=== PATIENT | male | born 1995 | race Caucasian/White ===

== ENCOUNTER 2024-02-18 22:44 | Emergency (ER) | payer OTHER ==
[2024-02-18 23:13] VITALS: RESP 18; TEMP 98.8
--- NOTE | 2024-02-18 23:13 | ED ---
URI HPI - General Chief Complaint: Upper Respiratory Infection Stated Complaint: chest pain left sided numbness Time Seen by Provider: 02/18/24 23:07 Source: patient, RN notes reviewed, old records reviewed Mode of arrival: ambulatory Limitations: no limitations - History of Present Illness Initial Comments: This is a 28-year-old male to the ER for evaluation of cough congestion nasal pain runny nose ear pain facial swelling. Symptoms have been persistent for a while now but worse tonight. Patient is in no acute distress has no headache no recent fevers swelling and symptoms are just getting worse MD Complaint: cough, sore throat, rhinorrhea, nasal congestion, sinus pain -: days(s) Severity: mild, moderate Severity scale (1-10): 6 Quality: sharp, aching Consistency: constant Improves With: nothing Worsens With: nothing Associated Symptoms: myalgias, nasal congestion, sore throat Treatments Prior to Arrival: none - Related Data Previous Rx's Medication Instructions Recorded Amoxic-Pot Clav 875-125Mg 1 tab PO Q12HR #20 tablet 02/19/24 [Augmentin 875-125] Loratadine-Pseudoeph 10-240 mg 1 tab PO DAILY #14 tab 02/19/24 [Claritin-D 24 Hour] Allergies Allergy/AdvReac Type Severity Reaction Status Date / Time No Known Allergies Allergy Verified 02/18/24 22:56 Review of Systems ROS Statement: Those systems with pertinent positive or pertinent negative responses have been documented in the HPI. ROS Other: All systems not noted in ROS Statement are negative. Past Medical History Past Medical History: No Reported History History of Any Multi-Drug Resistant Organisms: None Reported Past Surgical History: No Surgical Hx Reported Past Psychological History: No Psychological Hx Reported Smoking Status: Vaper Past Alcohol Use History: None Reported Past Drug Use History: Marijuana General Exam Limitations: no limitations General appearance: alert, in no apparent distress Head exam: Present: atraumatic, normocephalic, normal inspection Eye exam: Present: normal appearance, PERRL, EOMI. Absent: scleral icterus, conjunctival injection, periorbital swelling ENT exam: Present: normal exam, mucous membranes moist Neck exam: Present: normal inspection. Absent: tenderness, meningismus, lymphadenopathy Respiratory exam: Present: normal lung sounds bilaterally. Absent: respiratory distress, wheezes, rales, rhonchi, stridor Cardiovascular Exam: Present: regular rate, normal rhythm, normal heart sounds. Absent: systolic murmur, diastolic murmur, rubs, gallop, clicks GI/Abdominal exam: Present: soft, normal bowel sounds. Absent: distended, tenderness, guarding, rebound, rigid Extremities exam: Present: normal inspection, full ROM, normal capillary refill. Absent: tenderness, pedal edema, joint swelling, calf tenderness Back exam: Present: normal inspection Neurological exam: Present: alert, oriented X3, CN II-XII intact Psychiatric exam: Present: normal affect, normal mood Skin exam: Present: warm, dry, intact, normal color. Absent: rash Course Vital Signs 02/18/24 02/19/24 22:50 01:13 Temperature 98.8 F Pulse Rate 80 78 Respiratory 18 18 Rate Blood Pressure 124/84 130/80 O2 Sat by Pulse 98 100 Oximetry - Reevaluation(s) Reevaluation #1: 02/19/24 03:04 Medical records reviewed Reevaluation #2: 02/19/24 03:04 Patient symptoms improved Reevaluation #3: 02/19/24 03:05 Patient informed of results and questions answered Reevaluation #4: Was pt. sent in by a medical professional or institution (, PA, CASINO ASSISTANT MANAGER, urgent care, hospital, or detention...) When possible be specific @ -no Did you speak to anyone other than the patient for history (EMS, parent, family, police, friend...)? What history was obtained from this source @ -no Did you review nursing and triage notes (agree or disagree)? Why? @ -agree Are old charts reviewed (outside hosp., previous admission, EMS record, old EKG, old radiological studies, urgent care reports/EKG's, detention records)? Report findings @ -yes Differential Diagnosis (chest pain, altered mental status, abdominal pain women, abdominal pain men, vaginal bleeding, weakness, fever, dyspnea, syncope, headache, dizziness, GI bleed, back pain, seizure, CVA, palpatations, mental health, musculoskeletal)? @ -prior EKG interpreted by me (3pts min.). @ -no X-rays interpreted by me (1pt min.). @ -no CT interpreted by me (1pt min.). @ -no U/S interpreted by me (1pt. min.). @ -no What testing was considered but not performed or refused? (CT, X-rays, U/S, labs)? Why? @ -none What meds were considered but not given or refused? Why? @ -none Did you discuss the management of the patient with other professionals (professionals i.e. , PA, CASINO ASSISTANT MANAGER, lab, RT, psych nurse, social media marketing specialist, knobber, teacher, assistant chief nursing officer, supervisor case loading)? Give summary @ -no Was smoking cessation discussed for >3mins.? @ -no Was critical care preformed (if so, how long)? @ -no Were there social determinants of health that impacted care today? How? (Homelessness, low income, unemployed, alcoholism, drug addiction, transportati on, low edu. Level, literacy, decrease access to med. care, longterm, rehab)? @ -none Was there de-escalation of care discussed even if they declined (Discuss DNR or withdrawal of care, Hospice)? DNR status @ -no What co-morbidities impacted this encounter? (DM, HTN, Smoking, COPD, CAD, Cancer, CVA, ARF, Chemo, Hep., AIDS, mental health diagnosis, sleep apnea, morbid obesity)? @ -none Was patient admitted / discharged? Hospital course, mention meds given and route, prescriptions, significant lab abnormalities, going to OR and other pertinent info. @ - 28 Male with upper respiratory infection pharyngitis otitis, patient will be placed on antibiotics and decongestion and can be discharged home Discharge Undiagnosed new problem with uncertain prognosis? @ -no Drug Therapy requiring intensive monitoring for toxicity (Heparin, Nitro, Insulin, Cardizem)? @ -no Were any procedures done? @ -no Diagnosis/symptom? @ -Upper respiratory infection pharyngitis Acute, or Chronic, or Acute on Chronic? @ -Acute Uncomplicated (without systemic symptoms) or Complicated (systemic symptoms)? @ -Complicated Side effects of treatment? @ -no Exacerbation, Progression, or Severe Exacerbation? @ -exacerbation Poses a threat to life or bodily function? How? (Chest pain, [place], [place], pneumonia, PE, COPD, DKA, ARF, appy, cholecystitis, CVA, Diverticulitis, Homicidal, Suicidal, threat to staff... and all critical care pts) @ -no Medical Decision Making - Medical Decision Making 28 Male with upper respiratory infection pharyngitis otitis, patient will be placed on antibiotics and decongestion and can be discharged home Disposition Clinical Impression: Acute upper respiratory infection, Upper respiratory tract infection Disposition: HOME SELF-CARE Condition: Good Instructions (If sedation given, give patient instructions): Upper Respiratory Infection (ED) Prescriptions: Amoxic-Pot Clav 875-125Mg [Augmentin 875-125] 1 tab PO Q12HR #20 tablet Loratadine-Pseudoeph 10-240 mg [Claritin-D 24 Hour] 1 tab PO DAILY #14 tab Is patient prescribed a controlled substance at d/c from ED?: No Referrals: None,Stated [Primary Care Provider] - 1-2 days Time of Disposition: 00:00
[2024-02-19] MEDS: AMOXIC-POT CLAV 875-125MG 1 EACH TAB PO STA (00:31)
[2024-02-19] MEDS: dexAMETHasone 2 MG TAB PO STA (00:31)
[2024-02-19] MEDS: LORATADINE-PSEUDOEPH 5-120 MG 1 EACH TAB.ER.12H PO STA (00:32)
[2024-02-19] MEDS: ETODOLAC 400 MG TAB PO STA (00:32)
[2024-02-19 01:36] VITALS: BP 130/80; PULSE 78
== END 2024-02-19 01:14 | disposition home or self-care (01) ==
LOC: EC 22:44
DX: J06.9 Acute upper respiratory infection, unspecified (principal); J02.9 Acute pharyngitis, unspecified; F17.290 Nicotine dependence, other tobacco product, uncomplicated; F12.90 Cannabis use, unspecified, uncomplicated
CPT/HCPCS: 99284; J8540

== ENCOUNTER 2025-01-05 14:52 | Emergency (ER) | payer OTHER ==
[2025-01-05 14:58] VITALS: RESP 16
--- NOTE | 2025-01-05 14:59 | ED ---
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 States that he was walking inside on hardwood stairs when he missed a step, falling and hitting the right side of his head. He denies loss of consciousness prior to the fall however states that he saw stars and felt like he was going to pass out after his admission during nauseous. Currently states that he is experiencing occasional changes in his vision and a headache that is rated as a 7/10. Has not taken any medications since the time of the fall. Denies other injuries from the fall. - Related Data Previous Rx's Medication Instructions Recorded Amoxic-Pot Clav 875-125Mg 1 tab PO Q12HR #20 tablet 02/19/24 [Augmentin 875-125] Loratadine-Pseudoeph 10-240 mg 1 tab PO DAILY #14 tab 02/19/24 [Claritin-D 24 Hour] Allergies Allergy/AdvReac Type Severity Reaction Status Date / Time No Known Allergies Allergy Verified 02/18/24 22:56 Review of Systems ROS Statement: Those systems with pertinent positive or pertinent negative responses have been documented in the HPI. ROS Other: All systems not noted in ROS Statement are negative. Past Medical History Past Medical History: No Reported History History of Any Multi-Drug Resistant Organisms: None Reported Past Surgical History: No Surgical Hx Reported Past Psychological History: No Psychological Hx Reported Smoking Status: Vaper Past Alcohol Use History: None Reported Past Drug Use History: Marijuana General Exam Limitations: no limitations General appearance: alert, in no apparent distress Head exam: Present: atraumatic, normocephalic, normal inspection Eye exam: Present: normal appearance, PERRL, EOMI. Absent: scleral icterus, conjunctival injection, periorbital swelling Neck exam: Present: normal inspection. Absent: tenderness, meningismus, lymphadenopathy Respiratory exam: Present: normal lung sounds bilaterally. Absent: respiratory distress, wheezes, rales, rhonchi, stridor Cardiovascular Exam: Present: regular rate, normal rhythm, normal heart sounds. Absent: systolic murmur, diastolic murmur, rubs, gallop, clicks GI/Abdominal exam: Present: soft, normal bowel sounds. Absent: distended, tenderness, guarding, rebound, rigid Neurological exam: Present: alert, oriented X3, CN II-XII intact Course Vital Signs 01/05/25 01/05/25 14:54 16:20 Temperature 97.9 F 97.8 F Pulse Rate 65 64 Respiratory 16 16 Rate Blood Pressure 118/74 114/81 O2 Sat by Pulse 98 98 Oximetry Medical Decision Making - Medical Decision Making Was pt. sent in by a medical professional or institution (, NING, GIN CLERK, urgent care, hospital, or custodial...) When possible be specific @ -No Did you speak to anyone other than the patient for history (EMS, parent, family, police, friend...)? What history was obtained from this source @ -No Did you review nursing and triage notes (agree or disagree)? Why? @ -I reviewed and agree with nursing and triage notes Were old charts reviewed (outside hosp., previous admission, EMS record, old EKG, old radiological studies, urgent care reports/EKG's, custodial records)? Report findings @ -No old charts were reviewed Differential Diagnosis (chest pain, altered mental status, abdominal pain women, abdominal pain men, vaginal bleeding, weakness, fever, dyspnea, syncope, headache, dizziness, GI bleed, back pain, seizure, CVA, palpatations, mental health, musculoskeletal)? @ -Concussion, scalp contusion, intracranial hemorrhage, cervical spine strain, cervical spine fracture, this list is not all inclusive EKG interpreted by me (3pts min.). @ -none X-rays interpreted by me (1pt min.). @ -None done CT interpreted by me (1pt min.). @ -CT of the brain C-spine without contrast no acute or cranial cervical spine abnormality U/S interpreted by me (1pt. min.). @ -None done What testing was considered but not performed or refused? (CT, X-rays, U/S, labs)? Why? @ -None What meds were considered but not given or refused? Why? @ -None Did you discuss the management of the patient with other professionals (professionals i.e. , NING, GIN CLERK, lab, RT, psych nurse, social media specialist, cabinet finisher, teacher, sales and service officer, caseworker protective services)? Give summary @ -No Was smoking cessation discussed for >3mins.? @ -No Was critical care preformed (if so, how long)? @ -No Were there social determinants of health that impacted care today? How? (Homelessness, low income, unemployed, alcoholism, drug addiction, transportation, low edu. Level, literacy, decrease access to med. care, halfway, rehab)? @ -No Was there de-escalation of care discussed even if they declined (Discuss DNR or withdrawal of care, Hospice)? DNR status @ -No What co-morbidities impacted this encounter? (DM, HTN, Smoking, COPD, CAD, Cancer, CVA, ARF, Chemo, Hep., AIDS, mental health diagnosis, sleep apnea, morbid obesity)? @ -None Was patient admitted / discharged? Hospital course, mention meds given and route, prescriptions, significant lab abnormalities, going to OR and other pertinent info. @ -Discharge. 29-year-old male presents emergency department after head injury. Overall is well-appearing. Neurological examination is here with no acute deficits. He is provided with dose of Tylenol for pain relief. CT of the brain and C-spine no acute process. Concussion care discussed at bedside. Case discussed with dr. Mcgee Undiagnosed new problem with uncertain prognosis? @ -No Drug Therapy requiring intensive monitoring for toxicity (Heparin, Nitro, Insulin, Cardizem)? @ -No Were any procedures done? @ -No Diagnosis/symptom? @ -concussion Acute, or Chronic, or Acute on Chronic? @ -acute Uncomplicated (without systemic symptoms) or Complicated (systemic symptoms)? @ -uncomplicated Side effects of treatment? @ -No Exacerbation, Progression, or Severe Exacerbation? @ -No Poses a threat to life or bodily function? How? (Chest pain, [place], [place], pneumonia, PE, COPD, DKA, ARF, appy, cholecystitis, CVA, Diverticulitis, Homicidal, Suicidal, threat to staff... and all critical care pts) @ -No Disposition Clinical Impression: Concussion Disposition: HOME SELF-CARE Condition: Good Instructions (If sedation given, give patient instructions): Concussion (ED) Additional Instructions: Please return to the Emergency Department if symptoms worsen or any other concerns. Is patient prescribed a controlled substance at d/c from ED?: No Referrals: None,Stated [Primary Care Provider] - 1-2 days Time of Disposition: 16:30
[2025-01-05] MEDS: ACETAMINOPHEN TAB 500 MG TAB PO STA (15:19)
--- NOTE | 2025-01-05 16:21 | CT ---
EXAMINATION TYPE: CT brain cspine wo con DATE OF EXAM: 01/05/2025 History: Slip and fall and hit head with headache comparison: None technique: Multiple axial images o btained through the skull base to vertex without use of IV contrast. Multiple axial images obtained f rom skull base through the upper thoracic spine without contrast. FINDINGS: Head CT: Ventricles, basal cisterns and sulci over convexities within normal limits and there is no mass, mass effect or shift of midline structures. No abnormal density is seen throughout the brain parenchyma and there is no acute intra or extra-axia l hemorrhage. Posterior fossa including the brainstem, fourth ventricle and cerebellar pontine angles are grossly n ormal. The intraorbital contents appear normal and symmetric. There are multiple mucous retention cysts or p olyps in the maxillary sinus indicating chronic maxillary sinusitis. The mastoid air cells are well a erated. CT cervical spine: Craniovertebral junction relationships and prevertebral soft tissues are normal. The cervical vertebral segments are normal in height and alignment and there is no fracture subluxati on. The disc spaces are well-maintained in height and there is no significant degenerative disc disease. The bony cervical canal is widely patent and there is no bony encroachment of the neural foramina. The paraspinal soft tissues unremarkable. IMPRESSION: 1. Head CT: No acute bleed or mass effect. 2. CT cervical spine: No acute trauma. [facility], , 01/05/2025 4:19 PM
[2025-01-05 16:45] VITALS: BP 115/72; PULSE 66; TEMP 97.9
== END 2025-01-05 16:45 | disposition home or self-care (01) ==
LOC: EC 14:52
DX: S06.0XAA Concussion with loss of consciousness status unknown, initial encounter (principal); F17.290 Nicotine dependence, other tobacco product, uncomplicated; W10.9XXA Fall (on) (from) unspecified stairs and steps, initial encounter; Y93.01 Activity, walking, marching and hiking
CPT/HCPCS: 70450; 72125; 99284

== ENCOUNTER 2025-01-09 18:15 | Emergency (ER) | payer OTHER ==
[2025-01-09 18:21] VITALS: TEMP 98.4
--- NOTE | 2025-01-09 18:42 | ED ---
General Adult HPI - General Chief complaint: GI Bleed Stated complaint: Rectal bleeding Time Seen by Provider: 01/09/25 18:30 Source: patient, RN notes reviewed, old records reviewed Mode of arrival: ambulatory Limitations: no limitations - History of Present Illness Initial comments: 29 yo male presenting with an episode of bright red rectal bleeding. Patient had a hard stool and noted some bright red blood in the toilet. He states that this did not continue to bleed after the bowel movement. He has never had a colonoscopy. No history of colitis. He denies any abdominal pain. Fever. No history of hemorrhoids. - Related Data Previous Rx's Medication Instructions Recorded Amoxic-Pot Clav 875-125Mg 1 tab PO Q12HR #20 tablet 02/19/24 [Augmentin 875-125] Loratadine-Pseudoeph 10-240 mg 1 tab PO DAILY #14 tab 02/19/24 [Claritin-D 24 Hour] Docusate [Colace] 100 mg PO BID #60 capsule 01/09/25 Allergies Allergy/AdvReac Type Severity Reaction Status Date / Time No Known Allergies Allergy Verified 01/09/25 18:20 Review of Systems ROS Statement: Those systems with pertinent positive or pertinent negative responses have been documented in the HPI. ROS Other: All systems not noted in ROS Statement are negative. Past Medical History Past Medical History: No Reported History History of Any Multi-Drug Resistant Organisms: None Reported Past Surgical History: No Surgical Hx Reported Past Psychological History: No Psychological Hx Reported Smoking Status: Vaper Past Alcohol Use History: Occasional Past Drug Use History: None Reported General Exam Limitations: no limitations General appearance: alert, in no apparent distress Head exam: Present: atraumatic, normocephalic Eye exam: Present: normal appearance, PERRL ENT exam: Present: normal exam Neck exam: Present: normal inspection. Absent: tenderness, meningismus Respiratory exam: Present: normal lung sounds bilaterally. Absent: respiratory distress, wheezes Cardiovascular Exam: Present: regular rate, normal rhythm GI/Abdominal exam: Present: soft. Absent: distended, tenderness, guarding, rebound Rectal exam: Present: normal inspection, normal rectal tone. Absent: bloody stool, hemorrhoids, mass, tenderness Extremities exam: Present: normal inspection Back exam: Present: normal inspection. Absent: full ROM, tenderness Neurological exam: Present: alert, oriented X3, CN II-XII intact. Absent: motor sensory deficit Psychiatric exam: Present: normal affect, normal mood Skin exam: Present: warm, dry, intact. Absent: cyanosis, diaphoretic Course Vital Signs 01/09/25 18:17 Temperature 98.4 F Pulse Rate 87 Respiratory 16 Rate Blood Pressure 148/89 O2 Sat by Pulse 97 Oximetry Medical Decision Making - Medical Decision Making Was pt. sent in by a medical professional or institution (NING Carrera, MANAGER METAL, urgent care, hospital, or fci...) When possible be specific @ -No Did you speak to anyone other than the patient for history (EMS, parent, family, police, friend...)? What history was obtained from this source @ -No Did you review nursing and triage notes (agree or disagree)? Why? @ -I reviewed and agree with nursing and triage notes Were old charts reviewed (outside hosp., previous admission, EMS record, old EKG, old radiological studies, urgent care reports/EKG's, fci records)? Report findings @ -No old charts were reviewed Differential GI Bleed: Esophageal varices, aortoenteric fistula, Grisel-Brian, gastritis, peptic ulcer disease, diverticulosis, inflammatory bowel disease, hemorrhoids, fissure, colitis, malignancy, Meckel's diverticulum, this is not meant to be an all- inclusive list. EKG interpreted by me (3pts min.). @ -As above X-rays interpreted by me (1pt min.). @ -None done CT interpreted by me (1pt min.). @ -None done U/S interpreted by me (1pt. min.). @ -None done What testing was considered but not performed or refused? (CT, X-rays, U/S, labs)? Why? @ -None What meds were considered but not given or refused? Why? @ -None Did you discuss the management of the patient with other professionals (professionals i.e. NING Carrera, MANAGER METAL, lab, RT, psych nurse, oncology social work, marketing systems analyst, teacher, strategic debriefing officer, embedded case manager)? Give summary @ -No Was smoking cessation discussed for >3mins.? @ -No Was critical care preformed (if so, how long)? @ -No Were there social determinants of health that impacted care today? How? (Homelessness, low income, unemployed, alcoholism, drug addiction, transportation, low edu. Level, literacy, decrease access to med. care, assisted, rehab)? @ -No Was there de-escalation of care discussed even if they declined (Discuss DNR or withdrawal of care, Hospice)? DNR status @ -No What co-morbidities impacted this encounter? (DM, HTN, Smoking, COPD, CAD, Cancer, CVA, ARF, Chemo, Hep., AIDS, mental health diagnosis, sleep apnea, morbid obesity)? @ -None Was patient admitted / discharged? Hospital course, mention meds given and route, prescriptions, significant lab abnormalities, going to OR and other pertinent info. @29-year-old male with an episode of rectal bleeding. No further bleeding after this bowel movement. Normal rectal exam, no hemorrhoids, no gross blood no melena. Patient is hemodynamically stable. He will take stool softeners and increase the fiber in his diet. He will monitor for further bleeding. If there is further bleeding beyond the single episode he will return to the emergency department. He is also instructed to get a colonoscopy in the near future with his primary care provider. Undiagnosed new problem with uncertain prognosis? @ -No Drug Therapy requiring intensive monitoring for toxicity (Heparin, Nitro, Insulin, Cardizem)? @ -No Were any procedures done? @ -No Diagnosis/symptom? @ -Rectal bleeding Acute, or Chronic, or Acute on Chronic? @ -Acute Uncomplicated (without systemic symptoms) or Complicated (systemic symptoms)? @ -Default Side effects of treatment? @ -No Exacerbation, Progression, or Severe Exacerbation? @ -No Poses a threat to life or bodily function? How? (Chest pain, [place], [place], pneumonia, PE, COPD, DKA, ARF, appy, cholecystitis, CVA, Diverticulitis, Homicidal, Suicidal, threat to staff... and all critical care pts) @ -[Low risk at this time Disposition Clinical Impression: Rectal bleeding Disposition: HOME SELF-CARE Condition: Fair Instructions (If sedation given, give patient instructions): Gastrointestinal Bleeding (ED) Prescriptions: Docusate [Colace] 100 mg PO BID #60 capsule Is patient prescribed a controlled substance at d/c from ED?: No Referrals: None,Stated [Primary Care Provider] - 1-2 days Time of Disposition: 18:42
[2025-01-09 18:54] VITALS: BP 138/70; PULSE 76; RESP 18
== END 2025-01-09 18:54 | disposition home or self-care (01) ==
LOC: EC 18:15
DX: K62.5 Hemorrhage of anus and rectum (principal); F17.290 Nicotine dependence, other tobacco product, uncomplicated
CPT/HCPCS: 99284

== ENCOUNTER 2025-01-19 02:26 | Emergency (ER) | payer SELFPAY ==
[2025-01-19 02:30] VITALS: RESP 16
[2025-01-19] MEDS: IBUPROFEN 600 MG TAB PO STA (02:59)
[2025-01-19] MEDS: LIDOCAINE VISCOUS 2% 15 ML CUP MUCOUS MEM ONE (03:00)
[2025-01-19 03:41] LABS: Influenza A Not Detected (Not Detectd); Influenza B Not Detected (Not Detectd); RSV Not Detected (Not Detectd)
[2025-01-19 03:51] VITALS: BP 130/76; PULSE 87; TEMP 98
--- NOTE | 2025-01-19 03:51 | ED ---
ENT HPI - General Chief complaint: ENT Stated complaint: sore throat Time Seen by Provider: 01/19/25 02:39 Source: patient Mode of arrival: ambulatory Limitations: no limitations - History of Present Illness Initial comments: 29-year-old male presenting with chief complaint of sore throat. Symptoms started yesterday. He also admits to cough, vomiting, congestion. Denies difficulty breathing or swallowing. Admits to pain with swallowing. Thinks that he is vomiting because he is coughing so hard. No blood in his vomit. No sinus pain or ear pain. No fever. - Related Data Previous Rx's Medication Instructions Recorded Amoxic-Pot Clav 875-125Mg 1 tab PO Q12HR #20 tablet 02/19/24 [Augmentin 875-125] Loratadine-Pseudoeph 10-240 mg 1 tab PO DAILY #14 tab 02/19/24 [Claritin-D 24 Hour] Docusate [Colace] 100 mg PO BID #60 capsule 01/09/25 Allergies Allergy/AdvReac Type Severity Reaction Status Date / Time No Known Allergies Allergy Verified 01/19/25 02:27 Review of Systems ROS Statement: Those systems with pertinent positive or pertinent negative responses have been documented in the HPI. ROS Other: All systems not noted in ROS Statement are negative. Past Medical History Past Medical History: No Reported History History of Any Multi-Drug Resistant Organisms: None Reported Past Surgical History: No Surgical Hx Reported Past Psychological History: No Psychological Hx Reported Smoking Status: Vaper Past Alcohol Use History: Occasional Past Drug Use History: None Reported General Exam Limitations: no limitations General appearance: alert, in no apparent distress Head exam: Present: atraumatic, normocephalic, normal inspection Eye exam: Present: normal appearance, EOMI ENT exam: Present: normal exam, normal oropharynx, mucous membranes moist Neck exam: Present: normal inspection, lymphadenopathy. Absent: meningismus Respiratory exam: Present: normal lung sounds bilaterally. Absent: respiratory distress, wheezes, rales, rhonchi, stridor Cardiovascular Exam: Present: regular rate, normal rhythm, normal heart sounds. Absent: systolic murmur, diastolic murmur, rubs, gallop, clicks Neurological exam: Present: alert, oriented X3 Psychiatric exam: Present: normal affect, normal mood Skin exam: Present: warm, dry, normal color Course Vital Signs 01/19/25 02:28 Temperature 98.1 F Pulse Rate 90 Respiratory 16 Rate Blood Pressure 131/82 O2 Sat by Pulse 95 Oximetry Medical Decision Making - Medical Decision Making Was pt. sent in by a medical professional or institution ([facility], [facility], urgent care, hospital, or jail...) When possible be specific @ -No Did you speak to anyone other than the patient for history (EMS, parent, family, police, friend...)? What history was obtained from this source @ -No Did you review nursing and triage notes (agree or disagree)? Why? @ -I reviewed and agree with nursing and triage notes Were old charts reviewed (outside hosp., previous admission, EMS record, old EKG, old radiological studies, urgent care reports/EKG's, jail records)? Report findings @ -No old charts were reviewed Differential Diagnosis (chest pain, altered mental status, abdominal pain women, abdominal pain men, vaginal bleeding, weakness, fever, dyspnea, syncope, headache, dizziness, GI bleed, back pain, seizure, CVA, palpatations, mental health, musculoskeletal)? @ -Differential includes influenza, RSV, COVID, strep pharyngitis, peritonsillar abscess, not an all-inclusive list EKG interpreted by me (3pts min.). @ -As above X-rays interpreted by me (1pt min.). @ -None done CT interpreted by me (1pt min.). @ -None done U/S interpreted by me (1pt. min.). @ -None done What testing was considered but not performed or refused? (CT, X-rays, U/S, labs)? Why? @ -None What meds were considered but not given or refused? Why? @ -None Did you discuss the management of the patient with other professionals (professionals i.e. [facility], [employer], lab, RT, psych nurse, manager social media, hosiery pairer, teacher, tax compliance officer, nurse case management)? Give summary @ -No Was smoking cessation discussed for >3mins.? @ -No Was critical care preformed (if so, how long)? @ -No Were there social determinants of health that impacted care today? How? (Homelessness, low income, unemployed, alcoholism, drug addiction, transportation, low edu. Level, literacy, decrease access to med. care, prison, rehab)? @ -No Was there de-escalation of care discussed even if they declined (Discuss DNR or withdrawal of care, Hospice)? DNR status @ -No What co-morbidities impacted this encounter? (DM, HTN, Smoking, COPD, CAD, Cancer, CVA, ARF, Chemo, Hep., AIDS, mental health diagnosis, sleep apnea, morbid obesity)? @ -None Was patient admitted / discharged? Hospital course, mention meds given and route, prescriptions, significant lab abnormalities, going to OR and other pertinent info. @ -29-year-old male presenting with chief complaint of sore throat. History and physical examination are conducted. He is negative for influenza, RSV, COVI D, group A strep. He is educated on today's findings and supportive management at home. Feeling better after viscous lidocaine and ibuprofen here in the ER. Follow-up with PCP. Report back to ER with any new or worsening symptoms. Discussed return parameters and answered all questions. Patient conveyed verbal understanding and agreed to the plan. I discussed this case in detail with my attending Dr. Mcgee Undiagnosed new problem with uncertain prognosis? @ -No Drug Therapy requiring intensive monitoring for toxicity (Heparin, Nitro, Insulin, Cardizem)? @ -No Were any procedures done? @ -No Diagnosis/symptom? @ -Pharyngitis Acute, or Chronic, or Acute on Chronic? @ -Acute Uncomplicated (without systemic symptoms) or Complicated (systemic symptoms)? @ -Uncomplicated Side effects of treatment? @ -No Exacerbation, Progression, or Severe Exacerbation? @ -No Poses a threat to life or bodily function? How? (Chest pain, [place], [place], pneumonia, PE, COPD, DKA, ARF, appy, cholecystitis, CVA, Diverticulitis, Homicidal, Suicidal, threat to staff... and all critical care pts) @ -Unlikely - Lab Data Lab Results 01/19/25 01/19/25 Range/Units 02:37 02:37 Influenza Type A (PCR) Not Detected (Not Detectd) Influenza Type B (PCR) Not Detected (Not Detectd) RSV (PCR) Not Detected (Not Detectd) SARS-CoV-2 (PCR) Not Detected (Not Detectd) Group A Strep (PCR) NOT DETECTED (Not Detectd) Disposition Clinical Impression: Acute viral pharyngitis Disposition: HOME SELF-CARE Condition: Good Instructions (If sedation given, give patient instructions): Pharyngitis (ED) Additional Instructions: Follow-up with PCP. Report back to ER with any new or worsening symptoms. Take Motrin and Tylenol as needed for pain control. Is patient prescribed a controlled substance at d/c from ED?: No Referrals: None,Stated [Primary Care Provider] - 1-2 days Forms: Area PCPs Time of Disposition: 03:51
== END 2025-01-19 03:55 | disposition home or self-care (01) ==
LOC: EC 02:26
DX: J02.8 Acute pharyngitis due to other specified organisms (principal); B97.89 Other viral agents as the cause of diseases classified elsewhere; F17.290 Nicotine dependence, other tobacco product, uncomplicated
CPT/HCPCS: 87636; 87651; 99283